=== PATIENT | male | born 1980 | race African-American/Black ===

== ENCOUNTER 2022-09-21 04:23 | Day surgery (SDC) | payer OTHER ==
[2022-09-19 10:41] VITALS: BMI 28.5
[2022-09-21] MEDS ORDERED: oxyCODONE HCL 5 MG TABLET PO PRN (09:08)
[2022-09-21] MEDS ORDERED: ONDANSETRON 4 MG/2 ML VIAL IVPUSH PRN (09:08)
[2022-09-21] MEDS ORDERED: LACTATED RINGERS SOLUTION 1,000 ML IV SCH (09:15)
[2022-09-21] MEDS ORDERED: DEXAMETHASONE SOD PHOSPHATE 10 MG/1 ML VIAL ONE (09:17)
[2022-09-21] MEDS ORDERED: ROPIVACAINE HCL 0.5% 30ML VIAL ONE (09:17)
[2022-09-21] MEDS ORDERED: MIDAZOLAM HCL 2 MG/2 ML SINGLE DOSE VIAL ONE (09:18)
[2022-09-21] MEDS ORDERED: ceFAZolin SODIUM 1 GM VIAL ONE (10:47)
[2022-09-21] MEDS ORDERED: ceFAZolin SODIUM 1 GM VIAL IVPB ONE (10:48)
[2022-09-21] MEDS ORDERED: ONDANSETRON 4 MG/2 ML VIAL ONE (10:51)
[2022-09-21] MEDS ORDERED: DEXAMETHASONE SOD PHOSPHATE 4 MG/1 ML VIAL ONE (10:51)
[2022-09-21 17:34] VITALS: RESP 20; TEMP 98.2
[2022-09-21 17:44] VITALS: BP 121/76; PULSE 86
== END 2022-09-21 16:51 | disposition home or self-care (01) ==
LOC: JASU-SURG 04:23
PROVIDERS: ATTEND Orthopaedic Surgery
PROC: 0RBJ4ZZ Excision of Right Shoulder Joint, Percutaneous Endoscopic Approach (ICD-10-PCS; principal; 2022-09-21 09:30)
DX: M75.41 Impingement syndrome of right shoulder (principal)
CPT/HCPCS: 93005; 93010; 94760; J1100